=== PATIENT | female | born 1940 | race Caucasian/White ===

== ENCOUNTER → 2017-05-06 | Outpatient (CLI) | payer OTHER, BC ==
[~2017-05-06] MED LIST: IBUPROFEN 600600 M1 PO; MUCINEX600 MG PO; MULTI VITAMIN1 EACH PO; NORCO 5-325 TA1 EACH PO
== END ==
LOC: CAT 10:54
DX: R10.9 Unspecified abdominal pain (principal)

== ENCOUNTER → 2018-01-07 | Outpatient (CLI) | payer OTHER, BC ==
[2018-01-07 13:42] LABS: CALCIUM 9.7 mg/dL (8.5-10.1); CREATININE 0.7 mg/dL (0.6-1.0); POTASSIUM 4.2 mmol/L (3.5-5.1)
== END ==
LOC: CAT 12:59
PROVIDERS: Family Medicine
DX: I77.810 Thoracic aortic ectasia (principal); I70.0 Atherosclerosis of aorta

== ENCOUNTER → 2020-02-05 | Outpatient (CLI) | payer OTHER, BC | LOC: RAD 12:25 | PROVIDERS: ATTEND Internal Medicine | DX: R05 Cough (principal) ==

== ENCOUNTER → 2020-04-09 | Outpatient (CLI) | payer OTHER, BC ==
[~2020-04-09] MED LIST changes: +AVAPRO 150 MG150 M1 PO; +DOMPERIDONE PO; +FOSAMAX 70 MG T70 MG PO; +JANTOVEN2 MG PO; +NORCO 7.5-3251 EACH PO; +OMEPRAZOLE40 MG PO
== END ==
LOC: MRI 06:57
PROVIDERS: ATTEND Family Medicine
DX: M50.11 Cervical disc disorder with radiculopathy, high cervical region (principal); M25.78 Osteophyte, vertebrae; M48.02 Spinal stenosis, cervical region

== ENCOUNTER → 2020-04-10 | Outpatient (CLI) | payer OTHER, BC ==
[~2020-04-10] VITALS: Ht 167.6 cm; Wt 64.4 kg
[2020-04-10 12:50] VITALS: BP 135/75
--- NOTE | 2020-04-10 13:24 | NUR ---
Pain Clinic Assessment: 1. History of Osteoarthritis: Not Applicable History of Rheumatoid Arthritis: Not Applicable 2. Height: 5 ft. 6 in. 167.6 cm. Weight: 142.0 lb. oz. 64.411 kg. Patient's BMI: 22.9 3. Vital Signs: BP: 135/75 Pulse: 74 Resp: 16 Temp: 02 Sat: 97 ECG Mon: 4. Pain Intensity: 7 5. Fall Risk: Dizziness: N Needs help standing or walking: N Fallen in the last 3 months: N Fall risk comments: 6. Patient on Blood Thinner: None 7. History of Hypertension: Y 8. Opioid Therapy greater than 6 weeks: N Opiate Contract Signed: 9. Risk Assessment Tool Provided: LOW 10. Functional Assessment Tool: 11. Recreational Drug Use: Never Drug Type: Tobacco Use: Never Smoker Tobacco Type: Amount or Packs/day: How Many Years: Alcohol Use: Yes Frequency: Daily Quant: 1
--- NOTE | 2020-04-16 12:53 | HPC ---
[facility] [place] [address] PAIN MANAGEMENT CONSULTATION Name: SANDIE JAFFE Room #: REG [facility]#: [id number] Admission: 04/10/20 Attend Phys: Ashu Sommers DO Discharge: Date of : 38 Report #: [id number] THIS REPORT FOR: cc: Miguel A Tony MD, Neal A. MD Johnson, James E. DO ~ DATE OF SERVICE: 04/10/2020 REFERRING PHYSICIAN: Miguel A Tony MD CHIEF COMPLAINT: Neck pain, right upper extremity pain with paresthesias. HISTORY OF PRESENT ILLNESS: As you know, the patient is an 79-year-old female who reports acute onset of neck pain, right upper extremity pain and paresthesias, presented on 03/30/2020. The patient denies injury or trauma that may have led to symptom development. The patient states she trialed iniw-sel-qtgkeaa medications without success. She utilizes rest, relaxation and some light stretching exercises again without efficacy. She sought evaluation through her primary care physician, Dr. Miguel A Tony, who trialed medication management in hopes of improving symptoms including adding Medrol Dosepak and Tylenol No. 3 for pain control. Despite these interventions, the patient continues to experience pain at a level of up to 7/10. She was sent for MRI of the cervical spine and the findings were such, the patient was then referred to our service to discuss interventional therapies. The patient reports today pain is continuous, steady and constant. She describes the pain as burning, aching, gnawing, intermittent numbness and tingling. She places current pain score 7/10, daily average is up to 8/10, worst the pain has been is 10/10. She indicates pain is exacerbated when "pain medications wear off." She states that her pain is improved when "stronger pain medications are given." She has been referred to our clinic to discuss interventional treatments to address suspected cervical radiculopathy. PAST MEDICAL HISTORY: 1. Chronic anemia. 2. Asthma. 3. Diverticulitis. 4. Hypertension. 5. Osteoporosis. 6. Gastroesophageal reflux disease. PAST SURGICAL HISTORY: 1. Cataract excision. 2. Cyst removal. 3. Dilation and curettage. [facility] [address] [place] [address] PAIN MANAGEMENT CONSULTATION Name: SANDIE JAFFE Room #: REG [facility].#: [id number] Admission: 04/10/20 Attend Phys: Ashu Sommers DO Discharge: Date of : 39 Report #: [id number] 4. Eye surgery. 5. Tonsillectomy. SOCIAL HISTORY: The patient denies tobacco, IV or illicit drug use. Admits to one alcoholic beverage per day. She is retired, retired years ago. She is unaccompanied at today's visit. She is not receiving workmen's compensation nor is she trying to obtain disability benefits. REVIEW OF SYSTEMS: Positive for wearing corrective eyewear, shortness of breath with walking or lying flat, asthma, wheezing, neck pain and right upper extremity pain and paresthesias. All other review of systems negative per 12-point review of systems other than those listed in history of present illness. Pain impact score 44/70 indicating moderate to severe interference of daily activities secondary to pain. ALLERGIES: No known drug allergies. CURRENT MEDICATIONS: Domperidone 10 mg 4 times a day, irbesartan 150 mg once a day, alendronate 70 mg per week, omeprazole 40 mg per day, hydrocodone/acetaminophen 7.5/325 one tab every 6 hours p.r.n. for pain, multivitamin 1 tab per day. IMAGING: MRI cervical spine obtained 04/09/2020 shows a C6-C7 ligamentous calcification versus disk fragment, central canal is mildly narrowed at this region. Disk osteophyte complexes noted at the C5-C6 level without significant central canal neural foraminal stenosis. Right C6-C7 foraminal uncovertebral joint disk osteophyte complex noted. PQRS: The patient has osteoarthritic changes of the cervical spine: No known rheumatoid arthritis. She is placing current pain score 7/10. She is not a fall risk nor has she had a fall in last 3 months. She is not on blood thinners, but is treated for hypertension. She is on opioids, but not in a chronic fashion. She has a low opiate addiction potential. Pain impact is 44/70, moderate to severe interference of daily activities secondary to pain. PHYSICAL EXAMINATION: VITAL SIGNS: Blood pressure 135/75, pulse 74, respiratory rate 16 and unlabored. The patient is 97% on room air. Height 5 feet 6 inches tall, weight 142 pounds, BMI calculated 22.9. GENERAL: Well-developed, well-nourished, well-hydrated 79-year-old female appearing her stated age. She is in no acute distress, awake, alert and oriented x 3. Current pain is rated at about 7/10. HEENT: Normocephalic, atraumatic. Pupils equal, round and reactive. Extraocular muscles are intact. Sclerae nonicteric without injection. [address] [address] PAIN MANAGEMENT CONSULTATION Name: SANDIE JAFFE Room #: REG [facility]#: [id number] Admission: 04/10/20 Attend Phys: Ashu Sommers DO Discharge: Date of : 39 Report #: [id number] NEUROLOGIC: Cranial nerves 2-12 grossly intact. Speech is fluent. The patient deemed a good historian. LUNGS: Clear. No wheeze or rhonchi, no rales. CARDIOVASCULAR: Regular. No appreciable gallop, no rub. ABDOMEN: Soft, nontender, nondistended. EXTREMITIES: Show no clubbing, no cyanosis, no edema. MUSCULOSKELETAL: Upper extremity strength appears symmetrical 5/5. Muscle bulk and tone is equal and symmetrical in comparing right upper extremity with left. There is pain elicited with biceps flexion and triceps extension on the right when compared to left. Spurling's test is equivocal to the right, negative left. Cervical provocation testing including extension and flexion appeared normal. Lateral flexion and rotation to the right causes intensification of pain. There is mild restriction of motion. Muscle bulk and tone is symmetrical in upper extremities bilaterally. No noted atrophy. ASSESSMENT: 1. Cervical radicular symptoms. 2. Cervical spondylosis with radicular symptoms. 3. Chronic intractable pain. PLAN: 1. Based on today's physical exam and history the patient provides, the description the patient uses in regards to pain, likely source of the patient's symptoms appears to be cervical radiculopathy. We have discussed with the patient treatment options for cervical radiculopathy, following was discussed with the patient today. We also reviewed the patient's MRI in its entirety. I am pleased to advise the patient that there does not appear to be a surgical necessity at this time, though that was one of the discussion of treatment options. The following was discussed with the patient today. We discussed physical therapy, stretching exercises and traction techniques as a treatment course. I do feel this will be beneficial in conjunction with any type of treatment determined appropriate. We discussed medication management with suggestions of treatment to include neuropathic pain medications and a consistent nonsteroidal anti-inflammatory. We discussed epidural injection for which the patient was referred to our clinic. We also discussed the options of surgery, though again given the findings on the MRI, I do not think this is necessary. After reviewing the risks and benefits of all proposed treatment options, the patient chose to begin with cervical epidural injection under fluoroscopic guidance. 2. The patient has been advised risks and benefits of a cervical epidural injection. These risks include but are not necessarily limited to bleeding, bruising, infection, worsening pain, no relief of pain, also risk of temporary or permanent muscle weakness, temporary or permanent nerve damage, possible paralysis and . The patient states understood and wished to proceed. 3. No medication changes made at today's visit[place] [address] PAIN MANAGEMENT CONSULTATION Name: SANDIE JAFFE Room #: REG [facility]#: [id number] Admission: 04/10/20 Attend Phys: Ashu Sommers DO Discharge: Date of : 39 Report #: [id number] current medical therapy as prior prescribed. 4. We will see the patient back in followup visit on an as needed basis for possible next in a series of cervical epidural injections. 5. We wish to thank Dr. Miguel A Tony for the referral of this patient to our clinic. We will keep you apprised of her response to treatment as we address cervical radicular symptoms. Again, we wish to thank you for the opportunity to see the patient in consultation. This is the first procedure of the first series that the patient is undergoing. After obtaining written consent, the patient was taken back to the fluoroscopy suite and placed in a prone position with separate pillows under chest and forehead to decrease cervical lordosis. The skin overlying the cervical area was prepped and draped in an aseptic fashion. The C7-T1 vertebral interspace was identified by AP fluoroscopy. The skin and subcutaneous tissue overlying the target site of injection was anesthetized using 3 mL of 1% lidocaine. A 20-gauge 3-1/2 inch Tuohy needle was advanced under fluoroscopic guidance toward the epidural space using a midline approach. The epidural space was identified using a loss of resistance to air technique. After negative aspiration for heme or cerebrospinal fluid, a total of 1 mL of Omnipaque was injected. A cervical epidurogram was confirmed using AP and oblique fluoroscopy. After negative aspiration for heme or cerebrospinal fluid, 5 mL of solution containing 2 mL 40 mg per mL, 80 mg total triamcinolone along with 3 mL of lidocaine 1% was injected in increments. Contrast spread was noted from post epidural space. The needle was then retracted approximately senior care and the needle track was flushed with 1 mL of 1% lidocaine. There were no apparent new sensory deficits in the upper extremities present following the procedure. A sterile bandage was placed over the injection site. The heart rate, pulse oximetry and blood pressure were continuously monitored after the procedure. There were no apparent complications. The patient tolerated the procedure well and was carefully escorted in the recovery room in stable condition. After meeting discharge criteria, the patient was discharged home. <ELECTRONICALLY SIGNED> By: Ashu Sommers DO 04/16/20 1253 [id number] [id number] Ashu Sommers DO /nt
== END | disposition home or self-care (01) ==
LOC: PAIN 07:01
PROVIDERS: ATTEND Anesthesiology Pain Medicine
DX: M47.22 Other spondylosis with radiculopathy, cervical region (principal); G89.29 Other chronic pain; I10 Essential (primary) hypertension; J45.909 Unspecified asthma, uncomplicated; D64.89 Other specified anemias; M81.0 Age-related osteoporosis without current pathological fracture; K21.9 Gastro-esophageal reflux disease without esophagitis; Z98.890 Other specified postprocedural states; Z79.899 Other long term (current) drug therapy; Z87.19 Personal history of other diseases of the digestive system; Z87.891 Personal history of nicotine dependence

== ENCOUNTER → 2020-07-02 | Outpatient (CLI) | payer OTHER, BC ==
[~2020-07-02] VITALS: Ht 167.6 cm; Wt 63.1 kg
[2020-07-02 12:40] VITALS: BP 148/91
--- NOTE | 2020-07-02 12:47 | NUR ---
Pain Clinic Assessment: 1. History of Osteoarthritis: Not Applicable History of Rheumatoid Arthritis: Not Applicable 2. Height: 5 ft. 6 in. 167.6 cm. Weight: 139.2 lb. oz. 63.141 kg. Patient's BMI: 22.5 3. Vital Signs: BP: 148/91 Pulse: 62 Resp: 16 Temp: 02 Sat: 99 ECG Mon: 4. Pain Intensity: 6-7 5. Fall Risk: Dizziness: N Needs help standing or walking: N Fallen in the last 3 months: N Fall risk comments: 6. Patient on Blood Thinner: None 7. History of Hypertension: Y 8. Opioid Therapy greater than 6 weeks: N Opiate Contract Signed: 9. Risk Assessment Tool Provided: LOW 10. Functional Assessment Tool: 44/ 11. Recreational Drug Use: Never Drug Type: Tobacco Use: Never Smoker Tobacco Type: Amount or Packs/day: How Many Years: Alcohol Use: Yes Frequency: Quant:
--- NOTE | 2020-07-09 07:56 | HPC ---
[facility] [address] [place] [address] PAIN MANAGEMENT CONSULTATION Name: SANDIE JAFFE Room #: REG [facility]#: [id number] Admission: 07/02/20 Attend Phys: Ashu Sommers DO Discharge: Date of : 39 Report #: [id number] THIS REPORT FOR: cc: Miguel A Tony MD, Neal A. MD Johnson, James E. DO ~ DATE OF SERVICE: 07/02/2020 REFERRING PHYSICIAN: Miguel A Tony M.D. CHIEF COMPLAINT: Neck pain, right upper extremity pain and paresthesias. HISTORY OF PRESENT ILLNESS: As you know, the patient is an 80-year-old female who returns today in followup visit having received almost 7 weeks of near 100% improvement in overall pain with the previous cervical epidural injection. Unfortunately, her symptoms have begun to return. She denies injury or trauma. She states her pain is constant, burning, aching in sensation. She places pain 6-7/10. She states pain is exacerbated when medications wear off and with activity. She indicates pain is improved with "stronger medications," ice, heat and cold compresses and cervical epidural injections. She returns today in followup visit for the second series of cervical epidural injections to address recurrent cervical radicular pain. ALLERGIES: No known drug allergies. CURRENT MEDICATIONS: Domperidone, irbesartan, omeprazole, hydrocodone, multivitamin. SOCIAL HISTORY: The patient denies tobacco, alcohol, IV or illicit drug use. She is retired. She is accompanied by her daughter present in room today. IMAGING: No new imaging available. PQRS: The patient has arthritic changes of the cervical spine and lumbar spine. No rheumatoid arthritis. She is placing pain intensity 6-7/10. She is not a fall risk, has not had a fall in last 3 months. She is not on blood thinners, but is treated for hypertension. She is on chronic opioids and based on our assessment tool has a low opioid addiction potential, pain impact at 44/70, moderate to severe interference of daily activities secondary to pain. PHYSICAL EXAMINATION: VITAL SIGNS: Blood pressure 148/91, pulse 62, respiratory rate 16 and unlabored, the patient is 99% on room air. Height 5 feet 6 inches tall, weight 139.2 pounds, and BMI calculated 22.5. GENERAL: Well-developed, well-nourished, well-hydrated 80-year-old female [address] [address] PAIN MANAGEMENT CONSULTATION Name: SANDIE JAFFE Room #: REG [facility]#: [id number] Admission: 07/02/20 Attend Phys: Ashu Sommers DO Discharge: Date of : 39 Report #: [id number] appearing stated age, placing current pain score 7/10. HEENT: Normocephalic, atraumatic. EXTREMITIES: Show no clubbing, no cyanosis. No appreciable edema. MUSCULOSKELETAL: Lower extremity strength remains symmetrical again today at 5/5. Muscle bulk and tone is once again symmetrical in comparing upper extremities. Spurling's test remains equivocal right, negative left. The provocative testing including extension, flexion appeared to be normal. Lateral flexion and rotation to the right causes intensification of pain similar to previous evaluation. IMPRESSION: 1. Cervical radiculopathy. 2. Cervical spondylosis with radiculopathy. 3. Chronic intractable pain. PLAN: 1. The patient returns today in followup visit having noted near 7 weeks of improvement in symptoms with the previous cervical epidural injection. She reports up to nearly 100% improvement. Unfortunately, her symptoms spontaneously reoccurred. She returns today for next in the series of cervical epidural injections. We are pleased to see the patient did well with the initial injection, returning today for the next in the series. We have advised the patient the risks and benefits of the procedure, states understood and wished to proceed. 2. No medication changes made at today's visit. The patient will continue current medical therapy as prior prescribed. 3. We will see the patient back in followup visit on an as needed basis for possible next in the series of cervical epidural injections. We are hopeful the patient will see good and prolonged benefit with today's procedure. PROCEDURE NOTE DESCRIPTION OF PROCEDURE: C7-T1 cervical epidural steroid injection under fluoroscopic guidance. This is the second procedure of the first series that the patient is undergoing. After obtaining written consent, the patient was taken back to the fluoroscopy suite and placed in a prone position with several pillows under chest to afford a decrease cervical lordosis. The skin overlying the cervical area was prepped and draped in an aseptic fashion. The C7-T1 vertebral interspace was identified by AP fluoroscopy. The skin and subcutaneous tissue overlying the target site of injection was anesthetized using 3 mL of 1% lidocaine. A 20 gauge 2-1/2 inch Tuohy needle was advanced under fluoroscopic guidance toward the epidural space using a midline approach. The epidural space was [address] [address] PAIN MANAGEMENT CONSULTATION Name: SANDIE JAFFE Room #: REG [facility]#: [id number] Admission: 07/02/20 Attend Phys: Ashu Sommers DO Discharge: Date of : 39 Report #: [id number] identified using a loss of resistance to air technique. After negative aspiration for heme or cerebrospinal fluid, a total of 1 mL of Omnipaque was injected. A cervical epidurogram was confirmed using AP and oblique fluoroscopy. After negative aspiration for heme or cerebrospinal fluid, 5 mL of a solution containing 2 mL 40 mg per mL, 80 mg total, triamcinolone along with 3 mL lidocaine 1% was injected in increments. Contrast spread was noted from posterior epidural space. The needle was then retracted approximately half-way and the needle track was flushed with 1 mL of 1% lidocaine. There were no apparent new sensory deficits in the upper extremities present following the procedure. A sterile bandage was placed over the injection site. The heart rate, pulse oximetry and blood pressure were continuously monitored after the procedure. There were no complications. The patient tolerated the procedure well and was carefully escorted in the recovery room in stable condition. After meeting discharge criteria, the patient was discharged home. <ELECTRONICALLY SIGNED> By: Ashu Sommers DO 07/09/20 0756 1534 1 Ashu Sommers DO /nt
== END | disposition home or self-care (01) ==
LOC: PAIN 06-28 14:19
PROVIDERS: ATTEND Anesthesiology Pain Medicine
DX: M47.22 Other spondylosis with radiculopathy, cervical region (principal); G89.29 Other chronic pain; I10 Essential (primary) hypertension; Z98.890 Other specified postprocedural states; Z79.899 Other long term (current) drug therapy; Z79.891 Long term (current) use of opiate analgesic

== ENCOUNTER → 2020-12-12 | Outpatient (CLI) | payer OTHER | LOC: CAT 07:56 | PROVIDERS: ATTEND Family Medicine | DX: Z13.6 Encounter for screening for cardiovascular disorders (principal); I25.10 Atherosclerotic heart disease of native coronary artery without angina pectoris; E78.00 Pure hypercholesterolemia, unspecified ==

== ENCOUNTER → 2021-02-06 | Outpatient (CLI) | payer OTHER, BC ==
[~2021-02-06] MED LIST changes: +ASA81BEC PO; +CALCIUM CARBON500 MG PO; +CINNAMON500 MG PO; +CRESTOR5 MG PO; +FOLIC ACID1 MG PO; +L-LYSINE500 M1 PO; +LINSEED OIL1 ML PO; +OMEGA 3 FISH O1 EACH PO; +PROAIR HFA8.5 GM INH; +VITAMIN B-121000 MC3 PO
== END ==
LOC: SJCVCIMAG 07:31
PROVIDERS: ATTEND Internal Medicine
DX: I49.3 Ventricular premature depolarization (principal); R00.0 Tachycardia, unspecified; I08.8 Other rheumatic multiple valve diseases; I25.10 Atherosclerotic heart disease of native coronary artery without angina pectoris; I10 Essential (primary) hypertension; I77.810 Thoracic aortic ectasia; Z79.82 Long term (current) use of aspirin; Z79.899 Other long term (current) drug therapy; Z72.89 Other problems related to lifestyle

== ENCOUNTER → 2021-02-26 | Outpatient (CLI) | payer OTHER, BC ==
[~2021-02-26] VITALS: Ht 167.6 cm; Wt 63.0 kg
[2021-02-26 10:01] VITALS: BP 137/64
[2021-02-26 10:21] LABS: HEMATOCRIT 37.6 % (37.0-47.0); HEMOGLOBIN 12.3 gm/dL (12.0-15.0); MCH 28.9 pg (26.0-34.0); MCHC 32.7 g/dL (28.0-37.0); MCV 88.4 fL (80.0-100.0); RBC 4.25 mil/uL (4.20-5.00); RDW 14.8 % (10.5-14.5); WBC 5.8 thou/uL (4.0-11.0)
[2021-02-26 10:29] LABS: CALCIUM 9.1 mg/dL (8.5-10.1); CREATININE 0.8 mg/dL (0.6-1.0); POTASSIUM 4.1 mmol/L (3.5-5.1)
--- NOTE | 2021-02-26 12:23 | EKG ---
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1940 Requested By: Keith Shah Order Number: [id number] MD: Marques Valente Measurements Intervals [place] Rate: 59 P: 70 [place]: 211 QRS: 3 QRSD: 95 T: 45 QT: 421 QTc: 417 Interpretive Statements Sinus rhythm Probable left atrial enlargement RSR' in V1 or V2, probably normal variant Compared to ECG 02/26/2021 09:49:52 RSR' in V1 or V2 now present Intraventricular conduction delay no longer present Myocardial infarct finding no longer present Electronically Signed On 02-26-2021 12:23:09 CDT by Marques Valente [email or web address] <ELECTRONICALLY SIGNED> By: Marques Valente MD, [facility] 02/26/21 1223 0955 0955 Marques Valente MD, [facility] /EPI
--- NOTE | 2021-02-26 12:23 | EKG ---
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
--- NOTE | 2021-03-06 11:24 | CATHLAB ---
[facility] [place] [address] INVASIVE PROCEDURE REPORT Name: SANDIE JAFFE Room #: REG JIMMY DevenDeven#: [id number] Admission: 02/26/21 Attend Phys: Keith Shah Discharge: Date of : 38 Report #: [id number] THIS REPORT FOR: cc: Miguel A Tony MD, Neal A. MD Lammoglia, Francisco J. MD ~ APPROVED REPORT Study performed: 02/26/2021 10:33:24 Patient Details The patient is a 80 year-old female Event Personnel Keith Shah Child Development Consultant, Jenifer Nunez RT(R)() Monitor, Chaparrita Conway RN RN, Denise Mathias RTR Scrub Procedures Performed Art Access - R femoral artery* Left Heart Cath w/or w/o Coronaries [id number] [facility] Hemostasis with Manual pressure [id number] Initial Mod Sed Same Phys/QHP Gr5y [id number], supervision conscious sedation Indication Positive stress test, Chest pain Procedure Narrative The Right Groin^ was infiltrated with 1% Lidocaine subcutaneous anesthesia. A PINNACLE 4FR Sheath #[id number] sheath was inserted into the RFA 4F^. Coronary angiography was performed using coronary diagnostic catheters. The right coronary system was accessed and visualized with a JL4 catheter. The left coronary system was accessed and visualized with a JL5 catheter. The left ventricle was accessed and visualized with a PIGTAIL catheter. Hemostasis was obtained with manual pressure following sheath removal without any complications. The patient tolerated the procedure well and there were no complications associated with the procedure. There was no hematoma. Intraoperative Conscious Sedation Versed 3 mg Fluoro Time: 2.[address] [facility] [address] [place] [address] INVASIVE PROCEDURE REPORT Name: SANDIE JAFFE [facility] [id number] Admission: 02/26/21 Attend Phys: Keith Hayden Discharge: Date of : 38 Report #: [id number] Dose: DAP 1409.60 cGycm2 Contrast Type and Amount: Omnipaque 60 ml Coronary Angiography The patient's coronary anatomy is right dominant. Diagnostic Cath Left Main Large-caliber vessel normal origin bifurcates left into the stent of circumflex. Free of high-grade disease. LAD Monitor large-caliber type III vessel which courses in the anterior interventricular sulcus giving rise to septal diagonal branches. All of which are free of high-grade disease. There is mild luminal irregularities noted in the vessel is tortuous in its course Diagonal 1 Small diminutive caliber vessel without high-grade lesion Diagonal 2 Insignificant caliber vessel Circumflex Moderate to large-caliber vessel which becomes a lateral wall marginal bifurcating branch with mild irregularities noted. The circumflex proper continues a small insignificant caliber vessel in the AV groove posteriorly OM1 Large-caliber vessel as described above with normal bifurcation of the courses towards the apex and a tortuous course but free of high-grade disease Right Coronary Moderate caliber dominant vessel of normal origin courses in the AV groove giving rise to the right atrioventricular branches. Then proceeds posteriorly to the crux of the heart where origin of the posterior descending artery which is moderate in caliber is noted. The vessel continues on as is moderate to small caliber posterior wall branch. No high-grade lesions are noted only luminal irregularities are present. R PDA Moderate caliber vessel tortuous in its course with the apex in the posterior interventricular sulcus free of high-grade disease Left Ventriculography Left Ventriculography was not performed. Hemodynamics The aortic pressure is 130/56 mmHg with a mean of 78 mmHg. The left ventricular pressure is 137/7 mmHg with a mean of mmHg. The left ventricular end diastolic pressure is 22 mmHg. Conclusion 1. Minimal coronary artery disease with only mild plaquing essentially normal coronaries [facility] [address] [place] [address] INVASIVE PROCEDURE REPORT Name: SANDIE JAFFE Room #: REG [facility]#: [id number] Admission: 02/26/21 Attend Phys: Keith Hayden Discharge: Date of : 38 Report #: [id number] 2. Normal hemodynamics 3. Vessels quite tortuous suggestive of hypertensive heart disease Recommendations Cardiac Risk Reduction Program Medical Therapy <ELECTRONICALLY SIGNED> By: Keith Shah MD [id number] Keith Shah MD /INF
== END | disposition home or self-care (01) ==
LOC: CATH 08:00
PROVIDERS: ATTEND Internal Medicine
DX: R07.9 Chest pain, unspecified (principal); R94.39 Abnormal result of other cardiovascular function study; I25.10 Atherosclerotic heart disease of native coronary artery without angina pectoris; I10 Essential (primary) hypertension; D64.9 Anemia, unspecified; J45.909 Unspecified asthma, uncomplicated; Z98.890 Other specified postprocedural states; Z79.899 Other long term (current) drug therapy; Z87.19 Personal history of other diseases of the digestive system; Z82.49 Family history of ischemic heart disease and other diseases of the circulatory system